=== PATIENT | male | born 1975 | race Two or more races ===

== ENCOUNTER 2024-01-07 12:20 | Inpatient (IN) | payer BC, OTHER ==
[~2024-01-07] VITALS: Ht 198.1 cm; Wt 118.0 kg
[2024-01-07 13:46] LABS: Chloride 101 mmol/L (98-107); Potassium 3.2 mmol/L (3.5-5.1); Sodium 138 mmol/L (136-145)
[2024-01-07 13:47] LABS: Anion Gap 10 (5-15); Carbon Dioxide 27 mmol/L (20-30)
[2024-01-07 13:48] LABS: Calcium 9.7 mg/dL (8.7-10.4)
[2024-01-07 13:52] LABS: Glucose 153 mg/dL (74-106)
[2024-01-07 13:53] LABS: BUN/Creatinine Ratio 8.6 (10.0-20.0); Blood Urea Nitrogen 9 mg/dL (9-23)
[2024-01-07 13:58] LABS: Basophils # (auto) 0 10 ^3/uL (0-0.2); Eosinophils # (auto) 0 10 ^3/uL (0-0.8); Eosinophils % (auto) 0.1 % (0.0-7.0); Hemoglobin 14.5 g/dL (13.5-17.5); Mean Corpuscular Volume 103.1 fL (80.0-100.0); Monocytes # (auto) 0.3 10 ^3/uL (0-1.3); Neutrophils # (auto) 2.6 10 ^3/uL (1.6-8.6); Platelet Count (auto) 75 10^3/uL (140-450); Red Cell Distribution Width 12.8 % (11.8-14.3); White Blood Cell 3.4 10^3/uL (4.4-10.8)
[2024-01-07 14:00] LABS: Basophils % (auto) 0.4 % (0.0-2.0); Hematocrit 41.6 % (41.0-53.0); Lymphocytes # (auto) 0.5 10 ^3/uL (0.4-5.4); Lymphocytes % (auto) 13.7 % (10.0-50.0); Mean Corpuscular Hemoglobin 36.1 pg (28.0-32.0); Monocytes % (auto) 9.1 % (0.0-12.0); Neutrophils % (auto) 76.7 % (37.0-80.0); Nucleated Red Blood Cells % 0.2 %; Red Blood Cells 4.03 10^6/uL (4.5-5.90)
[2024-01-07] MEDS ORDERED: HYDROcodone-ACET 5/325MG TAB PO PRN (15:45)
[2024-01-07] MEDS ORDERED: ACETAMINOPHEN 325 MG TAB PO PRN (15:45)
[2024-01-07] MEDS: SODIUM CHLORIDE 0.9% 1,000 ML IV SCH (15:45)
[2024-01-07] MEDS ORDERED: hydrALAZINE HCL 20 MG/ML VL IV PRN (15:45)
[2024-01-07] MEDS ORDERED: ONDANSETRON HCL 4 MG/2 ML VIAL IV PRN (15:45)
[2024-01-07] MEDS ORDERED: DOCUSATE SOD 100 MG CAP PO PRN (15:45)
[2024-01-07] MEDS: cloNIDine HCL 0.1 MG TAB PO ONE (15:58)
[2024-01-07] MEDS: SODIUM CHLORIDE 0.9% 1,000 ML IV ONE (15:58)
[2024-01-07] MEDS: levETIRAcetam 1000 mg/100ml 100 ML IV ONE (16:03)
[2024-01-07] MEDS ORDERED: NITROGLYCERIN 0.4 MG SL TAB SL PRN (16:15)
[2024-01-07] MEDS ORDERED: MORPHINE SULFATE INJ 2 MG/ml SYRG IV PRN (16:15)
[2024-01-07] MEDS: POTASSIUM CHL 20 Meq TABLET PO ONE (16:32)
[2024-01-07] MEDS: levETIRAcetam 500 mg/100ml 100 ML IV SCH (23:08)
[2024-01-08] MEDS ORDERED: TELM80TA PO (02:01)
[2024-01-08 05:00] VITALS: BP 155/98; PULSE 71; RESP 18; TEMP 98.8; O2SAT 97
[2024-01-08 06:51] LABS: Basophils # (auto) 0 10 ^3/uL (0-0.2); Eosinophils # (auto) 0 10 ^3/uL (0-0.8); Eosinophils % (auto) 0.2 % (0.0-7.0); Hemoglobin 14.1 g/dL (13.5-17.5); Lymphocytes # (auto) 0.8 10 ^3/uL (0.4-5.4); Mean Corpuscular Hgb Conc. 35.1 g/dL (32.0-36.0); Neutrophils % (auto) 68.1 % (37.0-80.0); White Blood Cell 3.9 10^3/uL (4.4-10.8)
[2024-01-08 06:54] LABS: Basophils % (auto) 0.4 % (0.0-2.0); Hematocrit 40.1 % (41.0-53.0); Lymphocytes % (auto) 19.5 % (10.0-50.0); Mean Corpuscular Volume 102.4 fL (80.0-100.0); Monocytes # (auto) 0.5 10 ^3/uL (0-1.3); Monocytes % (auto) 11.8 % (0.0-12.0); Neutrophils # (auto) 2.6 10 ^3/uL (1.6-8.6); Nucleated Red Blood Cells % 0.3 %; Platelet Count (auto) 69 10^3/uL (140-450); Red Blood Cells 3.92 10^6/uL (4.5-5.90); Red Cell Distribution Width 12.7 % (11.8-14.3)
[2024-01-08 07:07] LABS: Alanine Aminotransferase 73 U/L (7-40); Albumin 4.2 g/dL (3.2-4.8); Alkaline Phosphatase 83 U/L (46-116); Anion Gap 11 (5-15); Aspartate Aminotransferase 135 U/L (13-40); BUN/Creatinine Ratio 5.7 (10.0-20.0); Bilirubin, Total 1.5 mg/dL (0.2-1.0); Blood Urea Nitrogen 5 mg/dL (9-23); Calcium 9.7 mg/dL (8.7-10.4); Carbon Dioxide 25 mmol/L (20-30); Chloride 103 mmol/L (98-107); Glucose 81 mg/dL (74-106); Potassium 2.9 mmol/L (3.5-5.1); Sodium 139 mmol/L (136-145); Total Protein 6.9 g/dL (5.7-8.2)
[2024-01-08 08:00] VITALS: PULSE 62
[2024-01-08 09:00] VITALS: BP 152/96; PULSE 61; RESP 24; TEMP 98.3; O2SAT 96
[2024-01-08] MEDS ORDERED: LORazepam 2MG/ML-1ML VIAL IV PRN ×2 (10:15)
[2024-01-08] MEDS ORDERED: MAGNESIUM SULFATE 1GM/100ML 100 ML IV ONE (11:45)
[2024-01-08] MEDS: POTASSIUM CHL 20MEQ/100ML 100 ML IV SCH (12:12)
[2024-01-08 13:00] VITALS: BP 152/95; PULSE 74; RESP 20; TEMP 98.3; O2SAT 94
[2024-01-08] MEDS ORDERED: FOLIC ACID 1 MG, MAGNESIUM SULF SDV 50% 8 MEQ, MULTIPLE VITAMIN 10 ML, THIAMINE INJ 100... INJ ONE (18:00)
== END 2024-01-08 15:00 | disposition left against medical advice (07) | DRG 101 ==
LOC: ER 12:20 → EDBD 12:20 → TELE 16:15 → TELE-E-ADS 23:24
PROVIDERS: ADMIT Internal Medicine; ATTEND Emergency Medicine
DX: G40.909 Epilepsy, unspecified, not intractable, without status epilepticus (principal); F10.239 Alcohol dependence with withdrawal, unspecified; E87.6 Hypokalemia; I16.0 Hypertensive urgency; S09.90XA Unspecified injury of head, initial encounter; R73.9 Hyperglycemia, unspecified; D69.6 Thrombocytopenia, unspecified; Y90.9 Presence of alcohol in blood, level not specified; E66.9 Obesity, unspecified; Z53.29 Procedure and treatment not carried out because of patient's decision for other reasons; F17.200 Nicotine dependence, unspecified, uncomplicated; D72.819 Decreased white blood cell count, unspecified; I10 Essential (primary) hypertension; W18.39XA Other fall on same level, initial encounter; Y93.89 Activity, other specified; Y92.89 Other specified places as the place of occurrence of the external cause; Y99.8 Other external cause status; Z68.30 Body mass index [BMI] 30.0-30.9, adult; Z82.49 Family history of ischemic heart disease and other diseases of the circulatory system
CPT/HCPCS: 36415; 70450; 70551; 80048; 80053; 80320; 83036; 83735; 84132; 84484; 85025; 86803; 87340; 96361; 96365; 96367; 99291; G0378; J3480